=== PATIENT | male | born 1980 | race Hispanic/Latino ===

== ENCOUNTER 2018-04-22 11:44 | Emergency (ER) | payer BC ==
[~2018-04-22] VITALS: Ht 167.6 cm; Wt 84.6 kg
[~2018-04-22 11:44] MED LIST: LORTAB 7.5 PO; PREVACID30 M3 PO; ZOFRAN ODT4 MG PO
[2018-04-22] MEDS ORDERED: TORADOL PO (13:40)
[2018-04-22 13:54] VITALS: BP 119/77
== END 2018-04-22 14:01 | disposition home or self-care (01) | DRG 103 ==
LOC: ED 11:44
DX: R51 Headache (principal); R22.0 Localized swelling, mass and lump, head